=== PATIENT | female | born 1985 | race Caucasian/White ===

== ENCOUNTER → 2018-10-29 | Outpatient (CLI) | payer BC | LOC: CIMAGING 07:54 | PROVIDERS: ATTEND Internal Medicine | DX: E78.70 Disorder of bile acid and cholesterol metabolism, unspecified (principal); R16.0 Hepatomegaly, not elsewhere classified; Z90.49 Acquired absence of other specified parts of digestive tract | CPT/HCPCS: 76705-PO ==